=== PATIENT | male | born 1985 | race Caucasian/White ===

== ENCOUNTER 2017-11-27 07:49 | Emergency (ER) | payer OTHER ==
[~2017-11-27] VITALS: Ht 177.8 cm; Wt 93.9 kg
[2017-11-27] MEDS ORDERED: TUSSI PRES-B L120 M1 PO (11:11)
== END 2017-11-27 11:37 | disposition home or self-care (01) ==
LOC: ER 07:49
DX: B34.9 Viral infection, unspecified (principal)

== ENCOUNTER 2019-09-17 07:00 | Outpatient (CLI) | payer OTHER ==
[~2019-09-17 07:00] MED LIST: TUSSI PRES-B L120 M1 PO
== END 2019-09-17 10:00 | disposition home or self-care (01) ==
LOC: NUCLEAR 07:00
PROVIDERS: ATTEND Internal Medicine Cardiovascular Disease
DX: I20.1 Angina pectoris with documented spasm (principal)

== ENCOUNTER 2019-10-19 12:52 | Emergency (ER) | payer OTHER ==
[~2019-10-19] VITALS: Ht 180.3 cm; Wt 104.3 kg
== END 2019-10-19 16:00 | disposition home or self-care (01) ==
LOC: ER 12:52
DX: R07.89 Other chest pain (principal)

== ENCOUNTER 2019-11-23 20:35 | Emergency (ER) | payer OTHER ==
[~2019-11-23] VITALS: Ht 177.8 cm; Wt 106.6 kg
== END 2019-11-23 22:43 | disposition home or self-care (01) ==
LOC: ER 20:35
DX: S29.011A Strain of muscle and tendon of front wall of thorax, initial encounter (principal); R07.89 Other chest pain; X50.0XXA Overexertion from strenuous movement or load, initial encounter; Y93.73 Activity, racquet and hand sports; Y92.018 Other place in single-family (private) house as the place of occurrence of the external cause; Y99.8 Other external cause status

== ENCOUNTER 2019-11-28 19:26 | Emergency (ER) | payer OTHER ==
[~2019-11-28] VITALS: Ht 177.8 cm; Wt 106.6 kg
== END 2019-11-28 22:08 | disposition home or self-care (01) ==
LOC: ER 19:26
DX: M94.0 Chondrocostal junction syndrome [Tietze] (principal); R00.2 Palpitations; T48.1X5A Adverse effect of skeletal muscle relaxants [neuromuscular blocking agents], initial encounter; Y92.89 Other specified places as the place of occurrence of the external cause

== ENCOUNTER 2019-12-21 21:05 | Emergency (ER) | payer OTHER ==
[~2019-12-21] VITALS: Ht 177.8 cm; Wt 106.6 kg
== END 2019-12-22 00:06 | disposition home or self-care (01) ==
LOC: ER 21:05
DX: R07.89 Other chest pain (principal); M94.0 Chondrocostal junction syndrome [Tietze]